=== PATIENT | male | born 1980 | race Caucasian/White ===

== ENCOUNTER 2018-04-16 20:38 | Emergency (ER) | payer BC ==
[~2018-04-16] VITALS: Ht 185.4 cm; Wt 111.1 kg
[2018-04-16 20:42] VITALS: BP 148/78
--- NOTE | 2018-04-16 20:42 | NUR ---
TO BED # 9 AMBULATORY, REPORT GIVEN TO ELVIN WETZEL
--- NOTE | 2018-04-16 20:55 | NUR ---
37/M PRESENTS TO ED, C/O SEVERE HIVES THROUGHOUT BODY, STARTED WITH ITCHING AND FLUSHED APPEARANCE AT 1999. PT TOOK BENADRYL 2 TABLETS AT 1999, EPIPEN AT 2019. PT REPORTS EATING [place] PREVIOUSLY BEFORE FEELING SYMPTOMS. PT AOX4, GCS 15, RR EVEN AND UNLABORED. PT DENIES CP, SOB, N/V. LUNG SOUNDS CLEAR BL. HX PREVIOUS ANAPHYLACTIC REACTION 8 MONTHS AGO
--- NOTE | 2018-04-16 21:25 | NUR ---
Dr. Mcgowan evaluating patient at bedside.
[2018-04-16 21:30] VITALS: BP 129/77
--- NOTE | 2018-04-16 21:30 | NUR ---
Patient discharged with v/s stable. Written and verbal after care instructions given and explained. Patient alert, oriented and verbalized understanding of instructions. Ambulatory with steady gait. All questions addressed prior to discharge. ID band removed. Patient advised to follow up with PMD. Rx of EPIPEN 2-PACK, PREDNISONE given. Patient educated on indication of medication including possible reaction and side effects. Opportunity to ask questions provided and answered.
== END 2018-04-16 21:30 | disposition home or self-care (01) ==
LOC: MED 20:38
DX: T78.40XA Allergy, unspecified, initial encounter (principal); R21 Rash and other nonspecific skin eruption; X58.XXXA Exposure to other specified factors, initial encounter
CPT/HCPCS: 99283